=== PATIENT | female | born 1965 | race Two or more races ===

== ENCOUNTER 2022-08-22 07:00 | Day surgery (SDC) | payer OTHER | END 2022-08-22 10:35 | disposition home or self-care (01) | LOC: AMB-ENDOS 07:00 → CIR.AMB 13:45 → AMB-ENDOS 13:45 | PROVIDERS: ATTEND Colon & Rectal Surgery | DX: D12.2 Benign neoplasm of ascending colon (principal); K62.5 Hemorrhage of anus and rectum; R19.4 Change in bowel habit; K57.30 Diverticulosis of large intestine without perforation or abscess without bleeding; Z20.822 Contact with and (suspected) exposure to COVID-19 ==